=== PATIENT | female | born 1980 | race Caucasian/White ===

== ENCOUNTER 2018-04-19 07:32 | Day surgery (SDC) | payer BC ==
[~2018-04-19 07:32] MED LIST: Iopamidol 408 MG/ML 50 ML SDV ONE; Lactated Ringers 1,000 ML IV SCH; Sodium Chloride 0.9% 10 ML Syringe FLUSH PRN; Sodium Chloride 0.9% 2.5 ML Syringe FLUSH PRN
--- NOTE | 2018-04-19 08:30 | PCM.PREANE ---
Preanesthetic Assessment - Anesthesia/Transfusion/Family Hx Anesthesia History: Prior Anesthesia Without Reaction Family History of Anesthesia Reaction: No Transfusion History: No Prior Transfusion(s) Intubation History: Unknown - Review of Systems General: No Symptoms Pulmonary: No Symptoms Cardiovascular: No Symptoms Gastrointestinal: No Symptoms Neurological: No Symptoms Other: Reports: None - Physical Assessment NPO Status Date: 04/18/18 NPO Status Time: 21:30 O2 Sat by Pulse Oximetry: 96 Respiratory Rate: 15 Vital Signs: Last Vital Signs Temp 36.3 C 04/19/18 08:10 Pulse 87 04/19/18 08:10 Resp 15 04/19/18 08:10 BP 143/78 H 04/19/18 08:10 Pulse Ox 96 04/19/18 08:10 Height: 1.68 m Weight: 99.79 kg ASA Class: 2 Mental Status: Alert & Oriented x3 Airway Class: Mallampati = 2 Dentition: Reports: Normal Dentition (tiny chip on front upper tooth) Thyro-Mental Finger Breadths: 3 Mouth Opening Finger Breadths: 2 ROM/Head Extension: Full Lungs: Clear to Auscultation, Normal Respiratory Effort Cardiovascular: Regular Rate, Regular Rhythm - Lab Values: Laboratory Last Values Urine HCG, Qual NEGATIVE (NEGATIVE) 04/19/18 07:45 - Allergies Allergies/Adverse Reactions: Allergies Allergy/AdvReac Type Severity Reaction Status Date / Time amoxicillin Allergy Hives Verified 04/16/18 14:19 Sulfa (Sulfonamide Allergy Hives Verified 04/16/18 14:19 Antibiotics) - Blood Blood Available: No - Anesthesia Plan Pre-Op Medication Ordered: None - Acknowledgements Anesthesia Type Planned: General Anesthesia Pt an Appropriate Candidate for the Planned Anesthesia: Yes Alternatives and Risks of Anesthesia Discussed w Pt/Guardian: Yes Pt/Guardian Understands and Agrees with Anesthesia Plan: Yes PreAnesthesia Questionnaire HEENT History: Reports: Other (See Below) Other HEENT History: wears glasses/contacts Cardiovascular History: Reports: None Respiratory History: Reports: None Genitourinary History: Reports: Renal Calculus (h/o kidney stone 6 years ago ( ESWL)) 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 OB/BYN History: heavy uterine bleeding during menses Musculoskeletal History: Reports: Fracture Other Musculoskeletal History: hx of fx rib Neurological History: Reports: Other (See Below) Other Neuro History: hx of motion sickness Psychiatric History: Reports: None Endocrine/Metabolic History: Reports: Obesity/BMI 30+ Hematologic History: Reports: None Immunologic History: Reports: None Oncologic (Cancer) History: Reports: None Dermatologic History: Reports: None - Infectious Disease History Infectious Disease History: Reports: Chicken Pox Other Infectious Disease History: childhood - Past Surgical History Head Surgeries/Procedures: Reports: None HEENT Surgical History: Reports: None Cardiovascular Surgical History: Reports: None Respiratory Surgical History: Reports: None GI Surgical History: Reports: Appendectomy, Cholecystectomy Female Surgical History: Reports: Lithotripsy/ESWL Other Female Surgeries/Procedures: kidney stones removed Neurological Surgical History: Reports: None Musculoskeletal Surgical History: Reports: None Oncologic Surgical History: Reports: None Dermatological Surgical History: Reports: None - SUBSTANCE USE Smoking Status *Q: Never Smoker Recreational Drug Use History: No - HOME MEDS Home Medications: Home Meds Norethindrone-Ethinyl Estrad [Dasetta 1-35-28 Tablet] 1 tab PO DAILY 04/16/18 [ History] - CURRENT (IN HOUSE) MEDS Current Meds: Current Medications Lactated Ringer's (Ringers, Lactated) 1,000 mls @ 100 mls/hr IV ASDIRECTED CARLY Last Admin: 04/19/18 08:21 Dose: 100 mls/hr Sodium Chloride (Saline Flush) 10 ml FLUSH ASDIRECTED PRN PRN Reason: Keep Vein Open Sodium Chloride (Saline Flush) 2.5 ml FLUSH ASDIRECTED PRN PRN Reason: Keep Vein Open Discontinued Medications Iopamidol (Isovue-200 (41%)) Confirm Administered Dose 50 ml .ROUTE .STK-MED ONE Stop: 04/19/18 07:33
[2018-04-19] MEDS ORDERED: fentaNYL 100 MCG/2 ML SDV ONE ×2 (09:31→10:34)
[2018-04-19] MEDS ORDERED: Propofol 200 MG/20 ML SDV ONE (09:31)
[2018-04-19] MEDS ORDERED: Midazolam 1 MG/ML 2 ML SDV ONE (09:31)
[2018-04-19] MEDS ORDERED: Dexamethasone 4 MG/ML 5 ML MDV ONE (09:34)
[2018-04-19] MEDS ORDERED: Ondansetron 4 MG/2 ML SDV ONE ×2 (09:34→12:42)
[2018-04-19] MEDS ORDERED: Rocuronium 10 MG/ML 10 ML Syringe ONE (09:38)
[2018-04-19] MEDS ORDERED: Succinylcholine 200 MG/10 ML MDV ONE (09:38)
[2018-04-19] MEDS ORDERED: fentaNYL 100 MCG/2 ML SDV IVPUSH PRN (10:26)
[2018-04-19] MEDS ORDERED: Ciprofloxacin in D5W 200 ML ONE (10:38)
[2018-04-19] MEDS ORDERED: Acetaminophen 1,000 MG in Premix Bag 1 BAG IV ONE (12:09)
[2018-04-19] MEDS ORDERED: Ondansetron 4 MG/2 ML SDV IVPUSH PRN (12:33)
--- NOTE | 2018-04-19 13:07 | OR ---
SURGEON: Sarmad Diaz M.D. DATE OF PROCEDURE: 04/19/2018 PREOPERATIVE DIAGNOSIS: Right renal pelvis stone, staghorn. POSTOPERATIVE DIAGNOSIS: Right renal pelvis stone, staghorn. OPERATION: ESWL plus cystoscopy double-J stent placement. DESCRIPTION OF PROCEDURE: The patient was given general anesthesia. She was on the lithotripsy table. The position of the patient was adjusted, so the stone could be treated and eventually received 2400 shocks. However, there was minimal change in the appearance of the stone at the end of the treatment. Thus, I decided to put a double-J stent in that will help future management. So, she was then placed in dorsal lithotomy position. Cystourethroscopy was done, which was normal. A guidewire was advanced in the right ureter all the up into the renal pelvis over which a 6-[place] 26 centimeter double-J stent was placed. Position was confirmed on fluoroscopy. The bladder was emptied and the patient was moved to recovery room in good condition. PLAN: I will see her in the office in 3 weeks and arrange for the next treatment, which will most likely be laser lithotripsy. PIETER / TRACY /[id number]
[2018-04-19 13:19] VITALS: BP 130/66
== END 2018-04-19 13:15 | disposition home or self-care (01) ==
LOC: MW.SDS 07:32
PROVIDERS: ATTEND Urology
DX: N20.0 Calculus of kidney (principal); K80.20 Calculus of gallbladder without cholecystitis without obstruction; Z88.1 Allergy status to other antibiotic agents; Z88.2 Allergy status to sulfonamides; E66.9 Obesity, unspecified
CPT/HCPCS: 50590; 52332; 81025; C1769; C2625; J0330; J0744; J1100; J2250; J2405; J3010; J7120; J2704; Q9966

== ENCOUNTER 2018-05-22 10:42 | Day surgery (SDC) | payer BC ==
[~2018-05-22 10:42] MED LIST changes: +Levofloxacin/Dextrose 5%-Water 500 MG in Premix Bag 1 BAG IV ONE
--- NOTE | 2018-05-22 11:11 | PCM.PREANE ---
Preanesthetic Assessment - Anesthesia/Transfusion/Family Hx Anesthesia History: Prior Anesthesia Without Reaction Family History of Anesthesia Reaction: No Transfusion History: No Prior Transfusion(s) Intubation History: Unknown - Review of Systems General: No Symptoms Pulmonary: No Symptoms Cardiovascular: No Symptoms Gastrointestinal: No Symptoms Neurological: No Symptoms Other: Reports: None - Physical Assessment NPO Status Date: 05/21/18 Height: 1.65 m Weight: 107.048 kg ASA Class: 2 Mental Status: Alert & Oriented x3 Airway Class: Mallampati = 1 Dentition: Reports: Normal Dentition ROM/Head Extension: Full Lungs: Clear to Auscultation, Normal Respiratory Effort Cardiovascular: Regular Rate, Regular Rhythm - Lab Values: Laboratory Last Values Urine HCG, Qual NEGATIVE (NEGATIVE) 05/22/18 10:50 - Allergies Allergies/Adverse Reactions: Allergies Allergy/AdvReac Type Severity Reaction Status Date / Time amoxicillin Allergy Hives Verified 05/16/18 09:19 Sulfa (Sulfonamide Allergy Hives Verified 05/16/18 09:19 Antibiotics) - Anesthesia Plan Pre-Op Medication Ordered: None - Acknowledgements Anesthesia Type Planned: General Anesthesia Pt an Appropriate Candidate for the Planned Anesthesia: Yes Alternatives and Risks of Anesthesia Discussed w Pt/Guardian: Yes Pt/Guardian Understands and Agrees with Anesthesia Plan: Yes Additional Comments: PLAN: GET PreAnesthesia Questionnaire HEENT History: Reports: Other (See Below) Other HEENT History: wears glasses/contacts Cardiovascular History: Reports: None Respiratory History: Reports: None Gastrointestinal History: Reports: None Genitourinary History: Reports: Renal Calculus [employer]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 OB/BYN History: heavy uterine bleeding during menses Musculoskeletal History: Reports: Fracture Other Musculoskeletal History: hx of fx rib Neurological History: Reports: Other (See Below) Other Neuro History: hx of motion sickness Psychiatric History: Reports: None Endocrine/Metabolic History: Reports: Obesity/BMI 30+ Hematologic History: Reports: None Immunologic History: Reports: None Oncologic (Cancer) History: Reports: None Dermatologic History: Reports: None - Infectious Disease History Infectious Disease History: Reports: Chicken Pox Other Infectious Disease History: childhood - Past Surgical History Head Surgeries/Procedures: Reports: None HEENT Surgical History: Reports: None Cardiovascular Surgical History: Reports: None Respiratory Surgical History: Reports: None GI Surgical History: Reports: Appendectomy, Cholecystectomy Female Surgical History: Reports: Kidney stone extraction Other Female Surgeries/Procedures: kidney stones removed, rt ureteroscopy with stent placement 3 weeks Neurological Surgical History: Reports: None Musculoskeletal Surgical History: Reports: None Oncologic Surgical History: Reports: None Dermatological Surgical History: Reports: None - SUBSTANCE USE Smoking Status *Q: Never Smoker Recreational Drug Use History: No - HOME MEDS Home Medications: Home Meds Norethindrone-Ethinyl Estrad [Dasetta 1-35-28 Tablet] 1 tab PO DAILY 04/16/18 [ History] - CURRENT (IN HOUSE) MEDS Current Meds: Current Medications Lactated Ringer's (Ringers, Lactated) 1,000 mls @ 100 mls/hr IV ASDIRECTED CARLY Sodium Chloride (Saline Flush) 10 ml FLUSH ASDIRECTED PRN PRN Reason: Keep Vein Open Sodium Chloride (Saline Flush) 2.5 ml FLUSH ASDIRECTED PRN PRN Reason: Keep Vein Open Discontinued Medications Levofloxacin/Dextrose 500 mg/ (Premix) 100 mls @ 100 mls/hr IV ONETIME ONE Stop: 05/22/18 01:00 Iopamidol (Isovue-200 (41%)) Confirm Administered Dose 50 ml .ROUTE .STK-MED ONE Stop: 05/22/18 08:59
[2018-05-22] MEDS ORDERED: Rocuronium 10 MG/ML 10 ML Syringe ONE (11:24)
[2018-05-22] MEDS ORDERED: Lidocaine 2% 5 ML SDV ONE (11:24)
[2018-05-22] MEDS ORDERED: Midazolam 1 MG/ML 2 ML SDV ONE (11:24)
[2018-05-22] MEDS ORDERED: Propofol 200 MG/20 ML SDV ONE (11:24)
[2018-05-22] MEDS ORDERED: fentaNYL 250 MCG/5 ML SDV ONE (11:25)
[2018-05-22] MEDS ORDERED: Levofloxacin/Dextrose 5%-Water 100 ML IV ONE (11:36)
--- NOTE | 2018-05-22 13:46 | OR ---
SURGEON: Sarmad Diaz M.D. DATE OF PROCEDURE: 05/22/2018 PREOPERATIVE DIAGNOSIS: Residual right renal pelvis stone in the lower pole calyx. POSTOPERATIVE DIAGNOSIS: Residual right renal pelvis stone in the lower pole calyx. OPERATION: Renoscopy and laser lithotripsy. DESCRIPTION OF PROCEDURE: The patient was given general anesthesia, placed in dorsal lithotomy position, prepped and draped in sterile drapes. Cystourethroscopy was done, the double-J stent that was in was removed. A guidewire and a laser guide were both introduced in the right ureter all the way up into the renal pelvis. The flexible ureteroscope was advanced over the laser guide. The stones were visualized and broken up into a multitude of smaller pieces to 1-2 mm. The larger fragments were removed. With that done, the procedure was terminated and the patient was moved to recovery room in good condition. PIETER / TRACY /[id number]
--- NOTE | 2018-05-22 14:07 | PCM.POSTAN ---
POST ANESTHESIA ASSESSMENT - MENTAL STATUS Mental Status: Alert, Oriented - RESPIRATORY Respiratory Status: Respiratory Rate WNL, Airway Patent, O2 Saturation Stable - CARDIOVASCULAR CV Status: Pulse Rate WNL, Blood Pressure Stable - GASTROINTESTINAL GI Status: No Symptoms - POST OP HYDRATION Hydration Status: Adequate & Stable
[2018-05-22 14:12] VITALS: BP 147/78
--- NOTE | 2018-05-22 14:45 | PCM48HPAN ---
Post Anesthesia Note - EVALUATION WITHIN 48HRS OF ANESTHETIC Vital Signs in Normal Range: Yes Patient Participated in Evaluation: Yes Respiratory Function Stable: Yes Airway Patent: Yes Cardiovascular Function Stable: Yes Hydration Status Stable: Yes Pain Control Satisfactory: Yes Nausea and Vomiting Control Satisfactory: Yes Mental Status Recovered: Yes Resp Rate: 16
--- NOTE | 2018-05-22 15:44 | CR ---
EXAMINATION: Right ureteroscopy HISTORY: Lithotripsy COMPARISON: 05/14/2018 TECHNIQUE: 2 fluoroscopic images provided FINDINGS/IMPRESSION: Operative control films demonstrate selection of the right ureter with fragmenta tion of a lower pole stone post lithotripsy.
== END 2018-05-22 14:25 | disposition home or self-care (01) ==
LOC: MW.SDS 10:42
PROVIDERS: ATTEND Urology
DX: N20.0 Calculus of kidney (principal); E66.9 Obesity, unspecified; Z68.38 Body mass index [BMI] 38.0-38.9, adult; Z88.0 Allergy status to penicillin; Z88.2 Allergy status to sulfonamides
CPT/HCPCS: 52353; 76001; 81025; 88300; C1769; J1956; J2250; J2704; J3010; J7120; Q9966

== ENCOUNTER 2022-02-09 07:38 | Emergency (ER) | payer BC ==
[2022-02-09] MEDS ORDERED: Aspirin 81 MG Tab.Chew PO ONE (07:54)
[2022-02-09 07:56] VITALS: BP 175/114; PULSE 86
[2022-02-09 08:36] LABS: BLOOD UREA NITROGEN,BUN 10 mg/dL (7.0-18.0); CARBON DIOXIDE,CO2 24.5 mmol/L (21.0-32.0); CHLORIDE,CL 102 mmol/L (98-107); GLUCOSE RANDOM 263 mg/dL (74-106); SODIUM,NA 135 mmol/L (136-145)
[2022-02-09] MEDS ORDERED: Ketorolac 30 MG/ML SDV IVPUSH ONE (08:56)
== END 2022-02-09 09:40 | disposition home or self-care (01) ==
LOC: MW.ED 07:38
DX: M94.0 Chondrocostal junction syndrome [Tietze] (principal); E78.00 Pure hypercholesterolemia, unspecified; E11.9 Type 2 diabetes mellitus without complications; E66.9 Obesity, unspecified; Z68.34 Body mass index [BMI] 34.0-34.9, adult; Z88.0 Allergy status to penicillin; Z88.2 Allergy status to sulfonamides; Z79.84 Long term (current) use of oral hypoglycemic drugs
CPT/HCPCS: 36415; 71045; 80053; 84484; 85025; 93005; 96374; 99285; A9270; J1885; 93010; 99282

== ENCOUNTER 2025-04-11 15:18 | Emergency (ER) | payer BC ==
[2025-04-11 15:54] LABS: BASE EXCESS VENOUS -0.5 (-2.0-3.0); PH,VENOUS 7.4 (7.32-7.43)
[2025-04-11 15:56] LABS: BASOPHILS ABSOLUTE AUTO 0.09 K/uL (0.00-0.20); BASOPHILS PERCENT AUTO 0.9 % (0.0-1.0); EOSINOPHILS ABSOLUTE AUTO 0.11 K/uL (0.00-0.45); EOSINOPHILS PERCENT AUTO 1.1 % (0.0-6.0); HEMATOCRIT 37.9 % (37.0-47.0); HEMOGLOBIN 12.6 g/dL (12.0-16.0); IMMATURE GRAN ABSOLUTE AUTO 0.06 K/uL (0.00-0.05); IMMATURE GRAN PERCENT AUTO 0.6 % (0.0-0.4); LYMPHOCYTES ABSOLUTE AUTO 2.81 K/uL (1.00-4.80); LYMPHOCYTES PERCENT AUTO 29.1 % (24.0-44.0); MEAN CORPUSCULAR HEMOGLOBIN 30.1 pg (28.0-32.0); MEAN CORPUSCULAR HGB CONC 33.2 g/dL (32.0-36.0); MEAN CORPUSCULAR VOLUME 90.7 fL (83.0-99.0); MEAN PLATELET VOLUME 10.7 fL (9.4-12.3); MONOCYTES PERCENT AUTO 8.3 % (0.0-8.0); PLATELET COUNT,PLT 366 K/uL (150-400); RED BLOOD CELL COUNT 4.18 M/uL (4.10-5.30); WHITE BLOOD CELL COUNT,WBC 9.67 K/uL (3.9-11.3)
[2025-04-11] MEDS: Sodium Chloride 0.9% 1,000 ML IV ONE (15:58)
[2025-04-11 16:03] LABS: APPEARANCE,URINE CLEAR; BILIRUBIN,URINE NEGATIVE (NEGATIVE); COLOR,URINE YELLOW; GLUCOSE,URINE >=1000 mg/dL (NEGATIVE); KETONES,URINE 15 mg/dL (NEGATIVE); LEUKOCYTE ESTERASE,URINE NEGATIVE (NEGATIVE); NITRITE,URINE NEGATIVE (NEGATIVE); OCCULT BLOOD,URINE SMALL (NEGATIVE); PROTEIN,URINE NEGATIVE (NEGATIVE); UROBILINOGEN,URINE 0.2 EU/dL (<2.0)
[2025-04-11 16:12] LABS: A/G RATIO 1.2 (0.9-1.6); ALBUMIN 3.5 g/dL (3.4-5.0); BILIRUBIN TOTAL 0.5 mg/dL (0.2-1.0); CALCIUM 9.3 mg/dL (8.5-10.1); CARBON DIOXIDE,CO2 26.3 mmol/L (21.0-32.0); CREATININE 0.9 mg/dL (0.6-1.0); EST CRCL DRUG DOSING (CG) 68.16 mL/min; MAGNESIUM 1.8 mg/dL (1.8-2.4); POTASSIUM,K 4.6 mmol/L (3.5-5.1); PROTEIN TOTAL,TP 6.5 g/dL (6.4-8.2)
[2025-04-11 16:21] LABS: BACTERIA,URINE FEW (NEGATIVE); MUCUS,URINE LIGHT (NONE-MOD); RBC,URINE 0-3 (0-2/HPF); SQUAMOUS EPITHELIAL CELLS,UR OCCASIONAL; WBC,URINE 0-2 (0-5/HPF)
[2025-04-11 16:29] LABS: HEMOGLOBIN A1C >14.0 %
[2025-04-11 16:32] LABS: LACTIC ACID 1.5 mmol/L (0.4-2.0)
[2025-04-11 16:44] VITALS: BP 123/77; PULSE 72
== END 2025-04-11 17:44 | disposition home or self-care (01) ==
LOC: MW.ED 15:18
DX: E11.65 Type 2 diabetes mellitus with hyperglycemia (principal); Z75.3 Unavailability and inaccessibility of health-care facilities; Z88.0 Allergy status to penicillin; Z88.2 Allergy status to sulfonamides; Z79.84 Long term (current) use of oral hypoglycemic drugs; Z79.899 Other long term (current) drug therapy
CPT/HCPCS: 36415; 80053; 81001; 82009; 82803; 82947; 83036; 83605; 83690; 83735; 85025; 96360; 99284; J7030; 99283